=== PATIENT | male | born 1985 | race Two or more races ===

== ENCOUNTER 2024-07-16 12:00 | Inpatient (IN) | payer BC, OTHER ==
[~2024-07-16] VITALS: Ht 177.8 cm; Wt 99.8 kg
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
--- NOTE | 2024-07-16 13:32 | DVH ---
CLINICAL INFORMATION: 38 years old, Male; fracture. TECHNIQUE: 3 views of the right hand were obtained. COMPARISON: None FINDINGS: Acute, mildly comminuted, spiral fracture of the midportion of the proximal phalanx of the 3rd digit with minimal displacement. Acute, mildly comminuted, spiral fractures of the 2nd, 3rd, and 4th metatarsals near their mid shafts with volar displacement of the distal fracture components and s ome over riding of the fracture components, greatest involving the 3rd and 4th metatarsals. There is a displaced 0.5 cm osseous fragment along the dorsal aspect of the hand with marked soft tissue swell ing and soft tissue gas at the dorsal aspect of the hand near the level of the mid to distal metatars als. IMPRESSION: Acute fractures involving the 2nd, 3rd, and 4th metatarsals, 3rd digit proximal phalanx.
[2024-07-16] MEDS ORDERED: fentaNYL CITRATE 100 MCG/2 ML VL IM ONE (15:00)
[2024-07-16] MEDS ORDERED: ceFAZolin IM 1GM/2.5ML STERILE WATER IM ONE (15:00)
[2024-07-16] MEDS: TETANUS-DIPTH-ACEL PERTUSSIS 0.5ML SYR Tdap IM ONE (15:50)
[2024-07-16 16:08] VITALS: PULSE 75; RESP 16; O2SAT 96
[2024-07-16] MEDS: cefTRIAXone 1GM/50ML D5W 50 ML IV ONE (16:18)
[2024-07-16] MEDS: fentaNYL CITRATE 100 MCG/2 ML VL IV ONE (16:19)
[2024-07-16] MEDS ORDERED: ACETAMINOPHEN 325 MG TAB PO PRN (16:45)
[2024-07-16] MEDS ORDERED: ONDANSETRON HCL 4 MG/2 ML VIAL IV PRN (16:45)
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
[2024-07-16 18:39] VITALS: BP 124/77; PULSE 70; RESP 17; TEMP 98.3; O2SAT 99
[2024-07-16 18:46] LABS: Basophils # (auto) 0 10 ^3/uL (0-0.2); Basophils % (auto) 0.2 % (0.0-2.0); Eosinophils # (auto) 0 10 ^3/uL (0-0.8); Eosinophils % (auto) 0.1 % (0.0-7.0); Hematocrit 48.8 % (41.0-53.0); Hemoglobin 16.5 g/dL (13.5-17.5); Lymphocytes # (auto) 1.4 10 ^3/uL (0.4-5.4); Lymphocytes % (auto) 8.6 % (10.0-50.0); Mean Corpuscular Hemoglobin 31.3 pg (28.0-32.0); Mean Corpuscular Hgb Conc. 33.8 g/dL (32.0-36.0); Mean Corpuscular Volume 92.5 fL (80.0-100.0); Monocytes # (auto) 0.8 10 ^3/uL (0-1.3); Monocytes % (auto) 4.7 % (0.0-12.0); Neutrophils % (auto) 86.4 % (37.0-80.0); Nucleated Red Blood Cells % 0.1 %; Platelet Count (auto) 354 10^3/uL (140-450); Red Blood Cells 5.27 10^6/uL (4.5-5.90); Red Cell Distribution Width 13.7 % (11.8-14.3); White Blood Cell 16.2 10^3/uL (4.4-10.8)
[2024-07-16 19:02] LABS: Prothrombin Time 10.6 sec (9.3-11.8)
[2024-07-16 19:04] LABS: Alkaline Phosphatase 59 U/L (46-116); Anion Gap 9 (5-15); Aspartate Aminotransferase 30 U/L (13-40); BUN/Creatinine Ratio 9.1 (10.0-20.0); Bilirubin, Total 0.5 mg/dL (0.2-1.0); Blood Urea Nitrogen 10 mg/dL (9-23); Carbon Dioxide 28 mmol/L (20-31); Chloride 99 mmol/L (98-107); Glucose 100 mg/dL (74-106); Potassium 4.6 mmol/L (3.5-5.1); Sodium 136 mmol/L (136-145); Total Protein 7.9 g/dL (5.7-8.2)
[2024-07-16 19:08] LABS: Alanine Aminotransferase 56 U/L (7-40); Albumin 5.3 g/dL (3.2-4.8); Calcium 10.5 mg/dL (8.7-10.4)
[2024-07-16] MEDS: MORPHINE SULFATE INJ 2 MG/ml SYRG IV PRN (19:52)
[2024-07-16 20:00] VITALS: PULSE 72; RESP 17
[2024-07-16 21:00] VITALS: BP 125/78; PULSE 70; RESP 20; TEMP 98.1; O2SAT 98
[2024-07-16] MEDS: ceFAZolin 1GM/50ML 50 ML IV SCH (21:01)
[2024-07-16] MEDS: HYDROcodone-ACET 5/325MG TAB PO PRN (23:41)
[2024-07-17] VITALS (7 sets, daily range): BP systolic 120–143; BP diastolic 75–85; PULSE 68–86; RESP 18–20; TEMP 98.1–98.8; O2SAT 93–98
[2024-07-17] MEDS ORDERED: cefTRIAXone 1GM/50ML D5W 50 ML IV SCH (09:00)
[2024-07-17 11:43] LABS: Basophils # (auto) 0 10 ^3/uL (0-0.2); Basophils % (auto) 0.1 % (0.0-2.0); Eosinophils # (auto) 0 10 ^3/uL (0-0.8); Eosinophils % (auto) 0.5 % (0.0-7.0); Hematocrit 45.9 % (41.0-53.0); Hemoglobin 15.8 g/dL (13.5-17.5); Lymphocytes # (auto) 2.2 10 ^3/uL (0.4-5.4); Mean Corpuscular Hemoglobin 31.8 pg (28.0-32.0); Mean Corpuscular Hgb Conc. 34.3 g/dL (32.0-36.0); Mean Corpuscular Volume 92.5 fL (80.0-100.0); Monocytes # (auto) 0.7 10 ^3/uL (0-1.3); Monocytes % (auto) 7.5 % (0.0-12.0); Neutrophils # (auto) 6.5 10 ^3/uL (1.6-8.6); Neutrophils % (auto) 68.9 % (37.0-80.0); Nucleated Red Blood Cells % 0.1 %; Platelet Count (auto) 317 10^3/uL (140-450); Red Blood Cells 4.96 10^6/uL (4.5-5.90); Red Cell Distribution Width 13.4 % (11.8-14.3); White Blood Cell 9.5 10^3/uL (4.4-10.8)
[2024-07-17 12:00] LABS: Alanine Aminotransferase 39 U/L (7-40); Albumin 4.7 g/dL (3.2-4.8); Alkaline Phosphatase 57 U/L (46-116); Anion Gap 8 (5-15); Aspartate Aminotransferase 25 U/L (13-40); BUN/Creatinine Ratio 8.9 (10.0-20.0); Blood Urea Nitrogen 11 mg/dL (9-23); Carbon Dioxide 28 mmol/L (20-31); Chloride 100 mmol/L (98-107); Potassium 4.1 mmol/L (3.5-5.1); Sodium 136 mmol/L (136-145)
[2024-07-17 12:01] LABS: Bilirubin, Total 0.7 mg/dL (0.2-1.0); Total Protein 7.2 g/dL (5.7-8.2)
[2024-07-17 12:04] LABS: Glucose 112 mg/dL (74-106)
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
[2024-07-18 01:00] VITALS: BP 123/81; PULSE 71; RESP 18; TEMP 98.4; O2SAT 95
[2024-07-18 05:00] VITALS: BP 121/81; PULSE 95; RESP 18; TEMP 97.5; O2SAT 96
--- NOTE | 2024-07-18 06:54 | DVH ---
EXAM: XR Chest, 1 View CLINICAL INDICATION: PER PROTOCOL FOR SURGERY TECHNIQUE: Frontal view of the chest. COMPARISON: None FINDINGS: LUNGS AND PLEURAL SPACES: Unremarkable. No consolidation. No pneumothorax. HEART: Unremarkable. No cardiomegaly. MEDIASTINUM: Unremarkable. Normal mediastinal contour. BONES/JOINTS: Unremarkable. No acute fracture. OTHER FINDINGS: . None. . . .. IMPRESSION: No acute cardiopulmonary process.
[2024-07-18 09:00] VITALS: BP 125/89; PULSE 81; RESP 20; TEMP 97.8; O2SAT 94
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
--- NOTE | 2024-07-18 11:46 | DVHPN2 ---
Eyes: No Pain, No Vision change, No Conjunctivae inflammation, No Eyelid inflammation, No Other, No Redness ENT: No Ear pain, No Ear discharge, No Nose pain, No Nose discharge, No Nose congestion, No Mouth pain, No Mouth swelling, No Throat pain, No Throat swelling, No Other Cardiovascular: No Chest Pain, No Palpitations, No Orthopnea, No Paroxysmal Noc. Dyspnea, No Edema, No Lt Headedness, No Other Respiratory: No Cough, No Dry, No Shortness of breath, No SOB with excertion, No Wheezing, No Hemoptysis, No Pleuritic Pain, No Sputum, No Other Gastrointestinal: No Nausea, No Vomiting, No Abdominal Pain, No Diarrhea, No Constipation, No Melena, No Hematochezia, No Other Genitourinary: No Dysuria, No Frequency, No Incontinence, No Hematuria, No Retention, No Other Musculoskeletal: hand pain Skin: Other (Swelling and bleeding) Objective Vitals Vital Signs Date Time Temp Pulse Resp B/P (MAP) Pulse Ox O2 Delivery O2 Flow Rate FiO2 07/18/24 09:00 97.8 81 20 125/89 (101) 94 97.8 07/18/24 08:00 Room Air* 0 21 Intake/Output Intake and Output 07/18/24 07:00 Intake Total 1560 ml Output Total 1 ml Balance 1559 ml Intake Oral 1410 ml IV Total 150 ml Stool Total 1 ml # Voids 8 Medications Current Medications Medications Dose Ordered Sig/Yoseph Route Start Time Stop Time Status Last Admin Dose Admin Acetaminophen/ Hydrocodone Bitart 1 tab Q4HP PRN PO 07/16/24 16:45 07/17/24 20:22 1 TAB Ondansetron HCl 4 mg Q4HP PRN IV 07/16/24 16:45 Acetaminophen 650 mg Q6HP PRN PO 07/16/24 16:45 Morphine Sulfate 2 mg Q4HPRN PRN IV 07/16/24 16:45 07/16/24 19:52 2 MG Cefazolin Sodium 50 ml @ 100 mls/hr Q8HR IV 07/16/24 22:00 07/18/24 05:13 100 MLS/HR Laboratory Results Laboratory Tests 07/17/24 10:42 JUAN MUÑIZ MD Jul 18, 2024 11:46
--- NOTE | 2024-07-18 11:46 | DVHDS2 ---
Discharge Summary Date of Admission Jul 16, 2024 at 16:42 Labs/Diagnostic Data: Laboratory Results Test 07/17/24 10:42 07/16/24 17:01 White Blood Count 9.5 10^3/uL (4.4-10.8) Red Blood Count 4.96 10^6/uL (4.5-5.90) Hemoglobin 15.8 g/dL (13.5-17.5) Hematocrit 45.9 % (41.0-53.0) Mean Corpuscular Volume 92.5 fL (80.0-100.0) Mean Corpuscular Hemoglobin 31.8 pg (28.0-32.0) Mean Corpuscular Hemoglobin Concent 34.3 g/dL (32.0-36.0) Red Cell Distribution Width 13.4 % (11.8-14.3) Platelet Count 317 10^3/uL (140-450) Mean Platelet Volume 7.2 fL (6.9-10.8) Neutrophils (%) (Auto) 68.9 % (37.0-80.0) Lymphocytes (%) (Auto) 23.0 % (10.0-50.0) Monocytes (%) (Auto) 7.5 % (0.0-12.0) Eosinophils (%) (Auto) 0.5 % (0.0-7.0) Basophils (%) (Auto) 0.1 % (0.0-2.0) Neutrophils # (Auto) 6.5 10 ^3/uL (1.6-8.6) Lymphocytes # (Auto) 2.2 10 ^3/uL (0.4-5.4) Monocytes # (Auto) 0.7 10 ^3/uL (0-1.3) Eosinophils # (Auto) 0 10 ^3/uL (0-0.8) Basophils # (Auto) 0 10 ^3/uL (0-0.2) Nucleated Red Blood Cells 0.1 % Sodium Level 136 mmol/L (136-145) Potassium Level 4.1 mmol/L (3.5-5.1) Chloride Level 100 mmol/L (98-107) Carbon Dioxide Level 28 mmol/L (20-31) Anion Gap 8 (5-15) Blood Urea Nitrogen 11 mg/dL (9-23) Creatinine 1.24 mg/dL (0.700-1.30) Glomerular Filtration Rate Calc 77 mL/min (>90) BUN/Creatinine Ratio 8.9 (10.0-20.0) Serum Glucose 112 mg/dL (74-106) Calcium Level 10.0 mg/dL (8.7-10.4) Total Bilirubin 0.7 mg/dL (0.2-1.0) Aspartate Amino Transferase (AST) 25 U/L (13-40) Alanine Aminotransferase (ALT) 39 U/L (7-40) Alkaline Phosphatase 57 U/L (46-116) Total Protein 7.2 g/dL (5.7-8.2) Albumin 4.7 g/dL (3.2-4.8) Prothrombin Time 10.6 sec (9.3-11.8) Prothrombin Time INR 1.00 (0.9-1.15) Other Laboratory Tests 07/17/24 10:42 Discharge Statement: "Patient was advised to return to the ER or call 911 if any headaches, dizziness, shortness of breath, chest pain, abdominal pain, bleeding, fevers, or worsening of medical condition. Patient was counseled about treatment plan, medications, possible side effects, patientverbalized understanding. All questions were answered to the best of my ability. This discharge took greater then 30 minutes in planning, reviewing documentation, counseling the patient, and discussing with other team members." ASSESSMENT ASSESSMENT Assessment JUAN MUÑIZ MD Jul 18, 2024 11:46
[2024-07-18] MEDS ORDERED: HYDR-4902 PO (11:47)
[2024-07-18] MEDS ORDERED: CEPH500C PO (11:47)
[2024-07-18 13:00] VITALS: BP 133/91; PULSE 77; RESP 18; TEMP 98.2; O2SAT 94
[2024-07-18 14:18] VITALS: BP 133/91; PULSE 77; RESP 18; TEMP 98.2; O2SAT 94
== END 2024-07-18 14:53 | disposition home or self-care (01) | DRG 563 ==
LOC: ER 12:00 → OVERFLOW 16:42 → WEST WING 18:00
PROVIDERS: ADMIT Internal Medicine; ATTEND Internal Medicine
DX: S62.390A Other fracture of second metacarpal bone, right hand, initial encounter for closed fracture (principal); S92.321A Displaced fracture of second metatarsal bone, right foot, initial encounter for closed fracture; S92.331A Displaced fracture of third metatarsal bone, right foot, initial encounter for closed fracture; S92.341A Displaced fracture of fourth metatarsal bone, right foot, initial encounter for closed fracture; S62.618A Displaced fracture of proximal phalanx of other finger, initial encounter for closed fracture; S62.392A Other fracture of third metacarpal bone, right hand, initial encounter for closed fracture; S62.394A Other fracture of fourth metacarpal bone, right hand, initial encounter for closed fracture; F17.210 Nicotine dependence, cigarettes, uncomplicated; F14.90 Cocaine use, unspecified, uncomplicated; X58.XXXA Exposure to other specified factors, initial encounter; Z80.0 Family history of malignant neoplasm of digestive organs; Z83.3 Family history of diabetes mellitus; Y93.89 Activity, other specified; Y92.89 Other specified places as the place of occurrence of the external cause; Y99.8 Other external cause status
CPT/HCPCS: 36415; 71045; 73130; 80053; 85025; 85610; 90471; 90715; 96365; 96375; 99291; G0378